=== PATIENT | female | born 1985 | race Caucasian/White ===

== ENCOUNTER 2019-11-16 04:27 | Emergency (ER) | payer OTHER, SELFPAY ==
[2019-11-16 04:30] VITALS: BP 141/91; PULSE 87; RESP 16; TEMP 36.7; O2SAT 98
--- NOTE | 2019-11-16 04:52 | ED.ALLEREA ---
HPI - Allergic Reaction General Chief complaint: Allergic Reaction Stated complaint: facial swelling Source: patient Mode of arrival: ambulatory History of Present Illness HPI narrative: Sneezing after contact with a newly acquired cat yesterday. Awoke during the night with the cat on her pillow. She had swelling of the left eyelid and surrounding area, some itching. Denies rash/SOB/wheezing. No previous known allergy to animals. Related Data Home Medications Medication Instructions Recorded Confirmed venlafaxine 37.5 mg PO DAILY 11/16/19 11/16/19 Allergies Allergy/AdvReac Type Severity Reaction Status Date / Time latex Allergy Hives Verified 11/16/19 04:37 red dye Allergy Diarrhea Verified 11/16/19 04:38 strawberry Allergy Swelling Verified 11/16/19 04:38 of Lip/Tongue/Throat Review of Systems Constitutional: Constitutional: Reports no additional constitutional complaints Eyes: Eyes: Reports no additional eye complaints and Reports change in vision (some impairment secondary to eyelid swelling.) ENT: Denies sore throat Respiratory: Respiratory: Reports no additional respiratory complaints [facility] Past Medical History Medical History (Updated 11/16/19 @ 05:02 by Renato Calixto MD) Anxiety Exam Const: General: no acute distress HENMT: Face and sinus: abnormal facial exam (left eyelid and left upper check swelling, no erythema or tenderness. ) Eyes: Conjunctivae: conjunctivae normal Neck: Neck: no lymphadenopathy Resp: Auscultation: clear to auscultation bilaterally Course Vital Signs Vital signs: Vital Signs Temperature 36.7 C 11/16/19 04:30 Pulse Rate 87 11/16/19 04:30 Respiratory Rate 16 11/16/19 04:30 Blood Pressure 141/91 H 11/16/19 04:30 Pulse Oximetry 98 11/16/19 04:30 Temperature 36.7 C 11/16/19 04:30 Pulse Rate 87 11/16/19 04:30 Respiratory Rate 16 11/16/19 04:30 Blood Pressure 141/91 H 11/16/19 04:30 Pulse Oximetry 98 11/16/19 04:30 MDM - Allergic Reaction Differential Diagnosis Differential diagnosis: Likely allergic reaction (to cat) Discharge Plan Discharge Clinical Impression: Allergic reaction Patient Disposition: Home, Self-Care Condition: Stable Instructions: Allergies (ED) Additional Instructions: Wash bedding. Wash hands after petting cat. Consider not having a cat as a pet. Take loratadine once daily for allergy symptoms. Prescriptions: No Action venlafaxine 37.5 mg capsule,extended release 24hr 37.5 mg PO DAILY RF: 0 Follow-up/Referrals: Harlan,DEBRA Munoz [Primary Care Provider] - Time of Disposition: 04:55
== END 2019-11-16 05:00 | disposition home or self-care (01) ==
PROVIDERS: Emergency Provider Family Medicine; PCP Physician Assistant
DX: T78.40XA Allergy, unspecified, initial encounter (principal)
CPT/HCPCS: 99281; 99282

== ENCOUNTER 2020-06-17 16:52 | Outpatient (CLI) | payer OTHER, SELFPAY ==
--- NOTE | ~2020-06-17 | XR_ITS ---
XR cervical spine 4-5V 06/17/2020 17:45 Indication: Cervical radiculopathy Procedure: 4 view cervical spine Comparison: No prior studies for comparison. Findings: No fracture, subluxation or dislocation. Straightening of cervical lordosis, likely due to muscle spasm or patient positioning. Vertebral body and disc heights are preserved. No prevertebral s oft tissue abnormality. Lung apices are normal. Odontoid process within normal limits. Impression: 1: No significant abnormality of the cervical spine. Reviewed, dictated and finalized at location A. SPLITTER Impression: 1: No significant abnormality of the cervical spine.
== END 2020-06-17 16:53 ==
PROVIDERS: PCP Family Medicine; Visit Provider Family Medicine
DX: M54.12 Radiculopathy, cervical region (principal)
CPT/HCPCS: 72050

== ENCOUNTER 2020-06-29 15:04 | Outpatient (CLI) | payer OTHER, SELFPAY ==
--- NOTE | ~2020-06-29 | CT_ITS ---
EXAMINATION: CT cervical spine [facility] EXAM DATE: 06/29/2020 15:30 INDICATION: Cervical radiculopathy . Right hand numbness and tingling. TECHNIQUE: Spiral CT of the cervical spine was performed without contrast. Axial images were reviewe d. Coronal and sagittal reformatted images were also reviewed. The dose-length product (DLP) for thi s examination was 310.41 mGy-cm. The exposure was tailored according to patient size (auto mA exposu re control), and iterative reconstruction (ASIR) was used as additional dose reduction technique. Th ere is no prior study for comparison. FINDINGS: There is mild disc disease from C3 through C7. The vertebral bodies are aligned in the AP dimension. There are no acute fractures identified. The odontoid process is intact. The lateral mass es of C1 line up with C2. Prevertebral soft tissue and pre-dens space are within normal limits. Level by level evaluation: C2-C3: Disc does not extend beyond the endplate margin. Uncovertebral joint arthropathy: None. Facet joint arthropathy: Mild bilateral. Neural foraminal stenosis: No stenosis. Central canal stenosis: No stenosis. C3-C4: There is a minimal diffuse disc bulge. Uncovertebral joint arthropathy: Mild bilateral. Facet joint arthropathy: Mild bilateral. Neural foraminal stenosis: No stenosis. Central canal stenosis: No stenosis. C4-C5: There is a mild diffuse disc bulge. Uncovertebral joint arthropathy: Mild bilateral. Facet joint arthropathy: None. Neural foraminal stenosis: No stenosis. Central canal stenosis: No stenosis. C5-C6: There is a mild diffuse disc bulge asymmetric to the right Uncovertebral joint arthropathy: Mild to moderate right, mild left. Facet joint arthropathy: None. Neural foraminal stenosis: Mild right. Central canal stenosis: Mild. C6-C7: There is a mild diffuse disc bulge. Uncovertebral joint arthropathy: Mild bilateral. Facet joint arthropathy: None. Neural foraminal stenosis: No stenosis. Central canal stenosis: No stenosis. C7-T1: Disc does not extend beyond the endplate margin. Uncovertebral joint arthropathy: None. Facet joint arthropathy: Mild bilateral. Neural foraminal stenosis: No stenosis. Central canal stenosis: No stenosis. IMPRESSION: Mild cervical spondylosis. Reviewed, dictated and finalized at location A. IMPRESSION: Mild cervical spondylosis.
== END 2020-06-29 15:05 ==
PROVIDERS: PCP Family Medicine; Visit Provider Nurse Practitioner Psychiatric/Mental Health
DX: M47.23 Other spondylosis with radiculopathy, cervicothoracic region (principal); M48.03 Spinal stenosis, cervicothoracic region
CPT/HCPCS: 72125